=== PATIENT | female | born 1980 | race Caucasian/White ===

== ENCOUNTER 2020-08-08 17:53 | Inpatient (IN) | payer OTHER, SELFPAY ==
--- NOTE | 2020-08-08 17:53 | LDADM ---
This patient, Jadne Soto, was admitted to Labor/Delivery/Recovery 107 on 08/08/20 at 17:53. Plans for labor, pain management and were discussed with patient. Patient/family oriented to hospital policies and general routines including ID bracelet, bed and alarms, visiting hours, pain management, procedures, bathroom and other care routines, personal items, smoking policy, room service/diet and guest tray routines, infant security routines, and visiting hours. Patient/Family are encouraged to report perceived risks to care and to ask questions if they do not understand what they are told or what they should do. See OBIX for further documentation.
--- NOTE | 2020-08-08 18:32 | WPDANESEPP ---
Anes - Eval Pre Procedure Date/Time: 08/08/20 18:32 Pre Op Diagnosis: induction of labor Patient Data Age: 39 Gender: F Height: Weight: Allergies Allergy/AdvReac Type Severity Reaction Status Date / Time acetaminophen Allergy Mild ITCHING Verified 07/21/20 13:39 hydrocodone Allergy Mild ITCHING Verified 07/21/20 13:39 Home Medications Medication Instructions Recorded Confirmed Type PNV cmb#95-ferrous fumarate-FA 1 tablet PO DAILY 07/21/20 07/21/20 History [] Patient hx anesthesia problems: none Family hx anesthesia problems: none PMFSH Past Medical History Medical History Hx of supraventricular tachycardia Family History Family History Mother Breast cancer Father Pre-diabetes Chronic obstructive pulmonary disease Sibling Adrienne's disease Social History Social History Substance use: never Spiritual care concerns: No Exam Day of Procedure 08/08/20 18:32 Patient weight: normal Neurological: alert and oriented
[2020-08-08 18:57] VITALS: BP 121/74; PULSE 79
[2020-08-08 19:00] VITALS: BP 117/80; PULSE 91; TEMP 36.9
[2020-08-08 19:02] LABS: Basophils Percent Auto 0.2 % (0.2-1.2); Eosinophils Percent Auto 0.4 % (0-4.4); Hematocrit 34.7 % (37.0-47.0); Hemoglobin 11.9 g/dL (12.0-15.0); Immature Granulocyte Absolute 0.06 K/mm3 (0.00-0.031); Immature Granulocyte Percent A 0.6 % (0-0.5); Lymphocytes Absolute Auto 2.18 K/mm3 (0.9-3.2); Lymphocytes Percent Auto 23.6 % (18.3-44.2); Mean Corpuscular HGB Conc 34.3 g/dl (32-36); Mean Corpuscular Hemoglobin 31.6 pg (26-34); Mean Platelet Volume 10.2 fl (7.4-10.4); Monocytes Absolute Auto 0.8 K/mm3 (0.1-0.6); Monocytes Percent Auto 8.4 % (2.6-8.5); Neutrophils Absolute Auto 6.2 K/mm3 (1.3-6.7); Neutrophils Percent Auto 66.8 % (45.5-73.1); Platelet Count Result 218 k/mm3 (150-375); Red Blood Count 3.77 M/mm3 (4.2-5.4); Red Cell Distribution Width 12.9 % (11.5-14.5); White Blood Count 9.3 K/mm3 (4.5-10.0)
[2020-08-08] MEDS: DINOPROSTONE 10 MG VAG INSERT VAGINAL (19:05)
[2020-08-08 19:15] VITALS: BP 112/70; PULSE 82
[2020-08-08] MEDS: ACETAMINOPHEN 325 MG TABLET 650 MG PO (19:21)
[2020-08-08 21:09] VITALS: BP 119/70; PULSE 67; RESP 18; TEMP 36.6
[2020-08-09] VITALS (136 sets, daily range): BP systolic 93–131; BP diastolic 51–90; PULSE 61–101; RESP 18–20; TEMP 36.1–36.9; O2SAT 95–100
[2020-08-09] MEDS: ACETAMINOPHEN 325 MG TABLET 650 MG PO (01:19)
[2020-08-09] MEDS: LACTATED RINGERS 1,000 ML 125 ML IV CONT ×5 (05:28→23:52)
[2020-08-09] MEDS: OXYTOCIN 30 UNITS/NS 500 ML 30 UNITS/500 ML BAG IV CONT (05:29)
--- NOTE | 2020-08-09 06:59 | P.PNAN_ITS ---
Anes - Eval Pre Procedure Procedure: labor epidural Date/Time: 08/09/20 06:59 Preop Diagnosis: labor pain Pre Op Diagnosis: induction of labor Patient Data Age: 39 Gender: F Height: 5 ft 10 in Weight: 95 kg Last Vital Signs Temp 36.8 C 08/09/20 05:27 Pulse 75 08/09/20 06:45 Resp 20 08/09/20 05:27 BP 109/55 L 08/09/20 06:45 Allergies Allergy/AdvReac Type Severity Reaction Status Date / Time hydrocodone Allergy Mild ITCHING Verified 07/21/20 13:39 Home Medications Medication Instructions Recorded Confirmed Type PNV cmb#95-ferrous fumarate-FA 1 tablet PO DAILY 07/21/20 07/21/20 History [] Laboratory Tests 08/08/20 08/08/20 08/08/20 18:54 18:54 18:54 WBC 9.3 K/mm3 K/mm3 (4.5-10.0) RBC 3.77 M/mm3 L M/mm3 (4.2-5.4) Hgb 11.9 g/dL L g/dL (12.0-15.0) Hct 34.7 % L % (37.0-47.0) MCV 92.0 fl fl (80-100) MCH 31.6 pg pg (26-34) MCHC 34.3 g/dl g/dl (32-36) RDW 12.9 % % (11.5-14.5) Plt Count 218 k/mm3 k/mm3 (150-375) MPV 10.2 fl fl (7.4-10.4) Immature Gran % (Auto) 0.6 % H % (0-0.5) Neut % (Auto) 66.8 % % (45.5-73.1) Lymph % (Auto) 23.6 % % (18.3-44.2) [facility] % (Auto) 8.4 % % (2.6-8.5) Eos % (Auto) 0.4 % % (0-4.4) Baso % (Auto) 0.2 % % (0.2-1.2) Lymph # (Auto) 2.18 K/mm3 K/mm3 (0.9-3.2) [facility] # (Auto) 0.8 K/mm3 H K/mm3 (0.1-0.6) Eos # (Auto) 0.0 K/mm3 K/mm3 (0-0.3) Baso # (Auto) 0.0 K/mm3 K/mm3 (0.0-0.1) Abs Immat Gran (auto) 0.06 K/mm3 H K/mm3 (0.00-0.031) Absolute Neuts (auto) 6.2 K/mm3 K/mm3 (1.3-6.7) Absolute Nucleated RBC 0.0 K/mm3 K/mm3 (0.0-0.012) Nucleated RBC % 0.0 % % (0.0-0.2) RPR Pending Blood Type O Positive Antibody Screen Negative Patient hx anesthesia problems: none Family hx anesthesia problems: none PMFSH Past Medical History Medical History Hx of supraventricular tachycardia Family History Family History Mother Breast cancer Father Pre-diabetes Chronic obstructive pulmonary disease Sibling Adrienne's disease Social History Social History Smoking status: Never smoker Substance use: never Spiritual care concerns: No Exam Day of Procedure 08/09/20 06:59
--- NOTE | 2020-08-09 08:30 | WPDOBADMIT ---
Obstetrics - Admit Note Admission Note: record reviewed. Additions to the history and/or subsequent changes in the physical findings follow. 39 y/o at 39 3/7 weeks here for induction of labor. GBS neg. Cervidil overnight, has been withdrawn. otherwise uncomplicated. EFW two weeks ago was 7#5oz. AVSS NST reactive TOCO: irregular contractions ABD soft, nontender, gravid, vertex EXT nontender Cervix 2/50/-2. AROM with clear fluid. Bedside ultrasound shows vertex presentation. A: IUP at 39 3/7 weeks here for induction of labor. P: Oxytocin. Anticipate ..
[2020-08-09 10:52] LABS: Rapid Plasma Reagin Non-Reactive (NonReactive)
--- NOTE | 2020-08-09 12:45 | PM.OBPNLAB ---
Pain Control Date/time seen: 08/09/20 5185 Comments: Feeling some contractions. They are tolerable. Pelvic Exam Dilation (cm): 3 Effacement (%): 50 station: -2 Status status: Category l Assessment and Plan Comments: Continue labor.
--- NOTE | 2020-08-09 15:20 | PM.OBPNLAB ---
Pain Control Date/time seen: 08/09/20 17:42 Comments: Still comfortable. Pelvic Exam Dilation (cm): 4 Effacement (%): 50 station: -2 Status status: Category l Assessment and Plan Comments: Continue labor.
[2020-08-10] VITALS (63 sets, daily range): BP systolic 97–136; BP diastolic 51–96; PULSE 65–205; RESP 16–22; TEMP 36.4–37.4; O2SAT 95–100
[2020-08-10] MEDS: AMPICILLIN 2 GM/NS 100 ML 2 GM/100 ML BAG IVPB (02:52)
[2020-08-10] MEDS: ONDANSETRON INJ 4 MG/2 ML VIAL IV PUSH (04:11)
--- NOTE | 2020-08-10 06:28 | P.PCNOB_ITS ---
OB - Delivery Note Procedure Delivery date: 08/10/20 Procedure: Induction of labor with Induction method: AROM and other (Cervidil) Delivery augmentation: pitocin Delivery monitor: external FHT, external uterine and internal uterine Route of delivery: Laceration description: Perineal - 2nd Degree Delivery repair: vicryl (3-0) Specimen: Yes (cord blood) Estimated blood loss (mL): 320 Anesthesia type: Epidural Disposition: PACU Complications: None Narrative: 39 y/o at 39 4/7 weeks gestation who presented to the hospital for induction of labor. Cervidil was placed overnight, then withdrawn the next morning. Oxytocin was administered intravenously. Amniotomy was performed with return of clear fluid. She received an epidural for pain control. Eighteen hours after AROM, she received ampicillin intravenously. Her labor progressed and her cervix dilated completely. She pushed with good effort and delivered the infant's head to the perineum, followed by the body. The nose and mouth were bulb suctioned. After a delay, the cord was clamped and cut. The infant was handed off the field. Cord blood was collected. The placenta delivered spontaneously and was grossly normal in appearance. The usual 3 vessel cord was noted. A second degree midline perineal laceration was sustained. This was reapproximated using 3 0 Vicryl in the usual layered fashion. Excellent hemostasis resulted as did excellent reapproximation of the normal anatomy. Needle and instrument counts were correct. The patient was taken to recovery room in stable condition. The infant went to the nursery in stable condition. I was present and scrubbed for the entire delivery. [place] Baby Date of : 08/10/20 Time of : 06:10 Weeks of gestation at delivery: 39 gender: Female Weight (pounds): 8 Weight (ounces): 0 presentation: vertex position: Left Occiput Anterior Placenta delivery description: Spontaneous and Normal Configuration cord vessel description: 3 Vessels and Nuchal Cord score one minute: 8 score five minutes: 9
--- NOTE | 2020-08-10 06:31 | PM.OBDSVD ---
DS: Admitting Diagnosis Admitting Diagnosis Admitting Diagnosis: induction of labor DS: Discharge Diagnosis Discharge Diagnosis (1) (normal spontaneous vaginal delivery): Code(s): O80 - Encounter for full-term uncomplicated delivery Status: Acute OB - DS: Summary OB Procedures : None OB Procedures Intrapartum: Spontaneous Vag Delivery OB Procedures: : None DS: Data Data Completed and Pending Labs on day of discharge: Labs from last 24 hours 08/08/20 18:54 RPR Non-reactive Discharge Plan Discharge Attending physician on discharge: Evelio Weston Consulting providers: Lon Sandy Discharging Clinician: Evelio Weston Patient Disposition: Home, Self-Care Activity: may shower, no straining, may drive after 2 weeks and pelvic rest Diet: regular Wound Care Instructions: follow printed instructions Discharge Instructions: Education: Mom and Baby Guide Given to: Patient Follow-Up: Call your delivering provider's office for an appointment to be seen in: 6 weeks Mom and baby should come to the [facility] for the follow-up appointment. Appointment Date/Time: Friday08/14/2020 at 8:00 am Call [phone] if you are unable to keep your appointment time. BREAST CARE: * Wear a snug supportive bra. * For engorgement discomfort: Breast Feeding: * Apply warm moist washcloths * Express milk as needed to relieve engorgement * Wear loose clothing * For sore nipples: * Identify correct latch-on * Apply warm moist washcloths before and after nursing * Air dry nipples after nursing * May apply Lansinoh cream to nipples EPISIOTOMY/PERINEAL CARE: * Until bleeding stops, use your osorio bottle after urinating * Change your pad frequently throughout the day * You may take sitz baths several times a day (fill your bathtub with warm water and soak for 20 minutes.) Do NOT bathe in the water * No tub baths until seen by your physician - You may shower ACTIVITY: * Rest as much as possible. * Do not exercise or lift anything heavier than your baby (such as laundry or other children.) * Avoid stairs or driving as much as possible. * Do not put anything into the vagina. No douching, tampons, or sexual activity until seen by physician. NOTIFY PHYSICIAN IF YOU HAVE ANY QUESTIONS OR IF ANY OF THE FOLLOWING SYMPTOMS OCCUR: * If your episiotomy or incision becomes red, swollen, or more painful than what you have experienced in the hospital. * If your vaginal bleeding becomes foul smelling. * If your vaginal bleeding becomes more heavy than a period or if your bleeding changes from pink to bright red. However, you may pass an occasional walnut-sized clot once or twice for the first week . * If you experience a sharp, shooting pain in you calves. * If you discover a hard, reddened area on your breast or if you experience flu-like symptoms. DIET: * Eat regular, well-balanced meals. * Drink plenty of fluids daily. If , drink to thirst. Per Dr. Jayy Nunez Call or return if temperature above 100.4? F, increased abdominal pain, increased vaginal bleeding or any new problems. Follow-up/Referrals: Evelio Weston MD [Physician] - (6 weeks) Discharge Medications: New ibuprofen 600 mg tablet 600 mg PO Q6H PRN (Reason: cramps) Qty: 30 RF: 0 Continued PNV cmb#95-ferrous fumarate-FA [] 28 mg iron- 800 mcg Tablet 1 tablet PO DAILY RF: 0 Date of admission: 08/08/20 17:53 Primary Care Provider: PHYSICIAN,ENERGY AND SUSTAINABILITY MANAGER Admitting Provider: Evelio Weston Discharge Date/Time: 08/12/20 11:51 Attending physician on admission: Obed Steven
[2020-08-10] MEDS: OXYTOCIN 30 UNITS/NS 500 ML 30 UNITS/500 ML BAG 125 UNITS IV CONT (06:45)
[2020-08-10] MEDS: IBUPROFEN 600 MG TABLET PO ×3 (07:17→19:36)
[2020-08-10] MEDS: WITCH HAZEL 40 PADS 1 PAD TOPICAL (07:18)
[2020-08-10] MEDS: BENZOCAINE 20% AER SPR (*SP) 56 GM CAN 1 SPRAY TOPICAL (07:18)
--- NOTE | 2020-08-10 08:57 | OBPPTRN ---
Patient transferred to post room # 292 via wheelchair. Support person present. Oriented to unit, room, information board, rooming in, admission packet and security measures. Patient verbalizes understanding.
[2020-08-10] MEDS: MULTIVIT/MIN/PREN/FOL AC/IRON TABLET 1 TAB PO (11:39)
[2020-08-10] MEDS: ACETAMINOPHEN 325 MG TABLET 650 MG PO ×3 (11:39→23:48)
--- NOTE | 2020-08-10 11:45 | PC.NURSE ---
Called Anesthesia to come evaluate pt for ZAPATA. Reported that ZAPATA is worse when she sits up, better when she lies down. Pain is unaffected by Motrin.
--- NOTE | 2020-08-10 13:34 | PC.NURSE ---
Anesthesia here to evaluate pt for c/o head and neck ache.
[2020-08-11] MEDS: IBUPROFEN 600 MG TABLET PO ×3 (04:20→19:34)
[2020-08-11] MEDS: WITCH HAZEL 40 PADS 1 PAD TOPICAL (04:21)
[2020-08-11 05:01] LABS: Hematocrit 27.9 % (37.0-47.0); Hemoglobin 9.8 g/dL (12.0-15.0)
--- NOTE | 2020-08-11 07:03 | PM.OBPNVD ---
OB - PN: Subj Subjective Date/time seen: 08/11/20 07:03 Patient comments: no complaints and pain well controlled baby status: doing well and nursing well OB - PN: Obj Data Labs CBC & Chem 7: 08/11/20 04:20 Labs: Laboratory Results - last 24 hr 08/11/20 04:20 Hgb 9.8 L Hct 27.9 L OB - PN A/P Plan day: 1 Plan: routine care, discharge home and follow up 6 weeks Time Spent With Patient Time: Total time spent is greater than 50% in coordination of care (as documented) at patient's floor/unit and/or counseling patient: Time with patient: less than 15 minutes Review of Systems Review of Systems: All systems reviewed & are unremarkable except as noted in HPI and below Exam Const: General: no acute distress Eyes: General: appearance normal, both eyes and all related structures Neck: Neck: supple and no JVD Thyroid: thyroid normal Resp: Effort & Inspection: normal respiratory effort Auscultation: clear to auscultation bilaterally Cardio: Rate: regular rate Rhythm: regular rhythm GI: Inspection: non-distended GI Palp: Yes Soft to palpation, No Tenderness to palpation present (GI) and No Guarding due to palpation present (GI) Auscultation: normal bowel sounds : General: Yes bladder normal to palpation External Female Exam: normal external appearance Speculum Exam - Vagina: normal vaginal discharge and No vaginal bleeding Speculum Exam - Cervix: nontender Bimanual exam- vagina & uterus: bladder normal to palpation and No Cervical tenderness present OB/external & speculum: No vaginal bleeding Skin: General skin exam: no rashes or lesions noted Extrem: General: normal to inspection and no edema Psych: Mental Status: mental status grossly normal Affect: normal affect
--- NOTE | 2020-08-11 07:43 | WPDANLDPN2 ---
Anes-Prog Note L&D Date/Time: 08/11/20 07:43 Comfortable throughout: labor and delivery Neuraxial method: epidural Epidural/Spinal procedure site: clean & non-tender Neuro status: Neuro function grossly intact. Cardiovascular status: normal Respiratory status: normal Airway patency: baseline Mental status: baseline Post-Op hydration status: normal Vital Signs: Last Vital Signs Temp 36.7 C 08/10/20 19:47 Pulse 66 08/10/20 19:47 Resp 16 08/10/20 19:47 BP 111/62 08/10/20 19:47 Pulse Ox 98 08/10/20 19:47 Pain score (VAS): 2/10 Post-procedural complaints: other (pt with c/o headache (posterior neck/shoulders), worse with standing, relieved with lying flat. Better this morning. ) Patient feedback: Patient satisfied with anesthetic care. Pt instructed to contact anesthesia department if headache worsens. Other findings: Pt instructed on conservative measures for PDPH vs Epidural Blood patch
[2020-08-11 09:00] VITALS: BP 104/55; PULSE 71; RESP 18; TEMP 37; O2SAT 99
[2020-08-11] MEDS: MULTIVIT/MIN/PREN/FOL AC/IRON TABLET 1 TAB PO (09:00)
[2020-08-11] MEDS: DOCUSATE SODIUM 100 MG CAPSULE PO ×2 (09:00→17:13)
[2020-08-11] MEDS: POLYSACCHARIDE IRON COMPLEX 150 MG CAPSULE PO ×2 (09:01→17:13)
[2020-08-11] MEDS: ACETAMINOPHEN 325 MG TABLET 650 MG PO (09:02)
--- NOTE | 2020-08-11 14:06 | P.PCNANE_ITS ---
Anes - Epidural Blood Patch PN Date/Time: 08/11/20 14:06 Consent: I have discussed with the patient/family/POA, the rationale of a lumbar epidural autologous blood patch for the treatment of post-dural puncture headache (spinal headache), including associated potential risks, benefits, comp lications and side effects. I have also discussed more conservative treatment options such as intravenous hydration, caffeine and non-prescription analgesics. The patient/family/POA, understand(s) and wish(es) to proceed with epidural autologous blood patch as treatment for the patient's post-dural puncture headache. Time-Out: A pre-procedural Time-Out was completed immediately before starting the procedure and confirmed: Patient Identification, Site, Procedure, Patient Position and the Availability of Requisite Equipment. Clinical Indications: post dural puncture headache Epidural Insertion Note Patient position: sitting Skin prep: chlorhexidine and sterile drape Needle: 18 gauge Tuohy-Schliff Technique: loss of resistance Skin anesthesia: lidocaine 1% Observations: tolerated well and other (prepped draped sterile. Epid space acccessed without difficulty. 20 cc blood drawn from left forearm and instilled in epid space slowly to 20 cc. no comp. pt supine head up 30 deg. headache gone.) Complications: none
--- NOTE | 2020-08-11 18:35 | PC.NURSE ---
1600 Pt had a blood patch done this afternoon by Dr. Sandy; she now states she has no more pain in her neck, shoulders and head; she is up ad olegario without problems.
[2020-08-11 19:42] VITALS: BP 126/78; PULSE 63; RESP 16; TEMP 36.6; O2SAT 99
--- NOTE | 2020-08-12 06:34 | PM.OBPNVD ---
OB - PN: Subj Subjective Date/time seen: 08/12/20 06:34 Patient comments: no complaints and pain well controlled baby status: doing well and nursing well OB - PN: Obj Data Labs CBC & Chem 7: 08/11/20 04:20 OB - PN A/P Plan day: 2 Plan: routine care, discharge home and follow up 6 weeks Time Spent With Patient Time: Total time spent is greater than 50% in coordination of care (as documented) at patient's floor/unit and/or counseling patient: Time with patient: less than 15 minutes Review of Systems Review of Systems: All systems reviewed & are unremarkable except as noted in HPI and below Exam Const: General: no acute distress Eyes: General: appearance normal, both eyes and all related structures Neck: Neck: supple and no JVD Thyroid: thyroid normal Resp: Effort & Inspection: normal respiratory effort Auscultation: clear to auscultation bilaterally Cardio: Rate: regular rate Rhythm: regular rhythm GI: Inspection: non-distended GI Palp: Yes Soft to palpation, No Tenderness to palpation present (GI) and No Guarding due to palpation present (GI) Auscultation: normal bowel sounds : General: Yes bladder normal to palpation External Female Exam: normal external appearance Speculum Exam - Vagina: normal vaginal discharge and No vaginal bleeding Speculum Exam - Cervix: nontender Bimanual exam- vagina & uterus: bladder normal to palpation and No Cervical tenderness present OB/external & speculum: No vaginal bleeding Skin: General skin exam: no rashes or lesions noted Extrem: General: normal to inspection and no edema Psych: Mental Status: mental status grossly normal Affect: normal affect
[2020-08-12 07:01] VITALS: BP 114/76; PULSE 61; RESP 16; TEMP 36.4; O2SAT 100
[2020-08-12] MEDS: MULTIVIT/MIN/PREN/FOL AC/IRON TABLET 1 TAB PO (07:01)
[2020-08-12] MEDS: POLYSACCHARIDE IRON COMPLEX 150 MG CAPSULE PO (07:01)
[2020-08-12] MEDS: DOCUSATE SODIUM 100 MG CAPSULE PO (07:01)
[2020-08-12] MEDS: IBUPROFEN 600 MG TABLET PO (07:01)
[2020-08-14 07:50] VITALS: BP 129/84; PULSE 72; RESP 16; TEMP 36.9; O2SAT 99
== END 2020-08-12 11:51 | disposition home or self-care (01) | DRG 807 ==
LOC: ANHLDR 08-10 06:31 → ANHOB2 08-12 10:14 → ANHLDR 08-15 08:33 → ANHOB2 08-15 08:33
PROVIDERS: Admitting Provider Obstetrics & Gynecology; Visit Provider Obstetrics & Gynecology
DX: O69.81X0 Labor and delivery complicated by cord around neck, without compression, not applicable or unspecified (principal); Z37.0 Single live birth; Z3A.39 39 weeks gestation of pregnancy; O70.1 Second degree perineal laceration during delivery; O89.4 Spinal and epidural anesthesia-induced headache during the puerperium; Z28.21 Immunization not carried out because of patient refusal
CPT/HCPCS: 36415; 85014; 85018; 85025; 86592; 86850; 86900; 86901; 90471; 90653; 90686; A9270; G0008; J0290; J2405; J2590; J2795; J7120

== ENCOUNTER 2023-03-26 08:52 | Outpatient (CLI) | payer OTHER, SELFPAY ==
--- NOTE | ~2023-03-26 | MM_ITS ---
EXAMINATION: MM screening jose raul BI w sam HISTORY: Screening mammogram, family history of breast cancer in her mother. TECHNIQUE: Craniocaudal and mediolateral oblique 3-D tomosynthesis images were obtained and synthetic 2-D images were generated. CAD analysis was submitted and interpreted. COMPARISON: No prior mammogram is available for comparison at this institution. BREAST PARENCHYMAL COMPOSITION:The breasts are heterogeneously dense, which may obscure small masses. FINDINGS: No suspicious mass, calcification, or architectural distortion are identified in either lj ast to suggest malignancy. There has been no suspicious interval change. IMPRESSION: No mammographic evidence of malignancy. Recommend routine screening mammography in one year. BI-RADS Category 1: Negative Reviewed, dictated and finalized at location .
== END 2023-03-26 08:53 | disposition home or self-care (01) ==
LOC: ANHIMG 08:56
PROVIDERS: PCP Family Medicine; Visit Provider Family Medicine
DX: Z12.31 Encounter for screening mammogram for malignant neoplasm of breast (principal)
CPT/HCPCS: 77063; 77067

== ENCOUNTER → 2023-12-19 14:48 | Outpatient (CLI) | payer OTHER, SELFPAY ==
--- NOTE | ~2023-12-19 | US_ITS ---
EXAMINATION: US pelvic complete w TV DATE: 12/19/2023 15:24 INDICATION: Amenorrhea, unspecified. TECHNIQUE: Multiple transabdominal and transvaginal sonographic images of the pelvis were obtained. COMPARISON: None. FINDINGS: TRANSABDOMINAL ULTRASOUND: The uterus measures 9.0 x 3.8 x 4.9 cm. There is no free fluid in the pelvis. TRANSVAGINAL ULTRASOUND: The endometrial complex measures 2 mm in thickness. The right ovary measures 3.8 x 1.2 x 2.9 cm. The left ovary measures 2.0 x 1.7 x 2.0 cm. There is normal vascular flow in the ovaries. IMPRESSION: 1. Normal pelvis. Reviewed, dictated and finalized at location E. ET INSPECTOR FINISHED IMPRESSION: 1. Normal pelvis.
== END ==
PROVIDERS: PCP Family Medicine; Visit Provider Family Medicine
DX: N91.2 Amenorrhea, unspecified (principal)
CPT/HCPCS: 76830; 76856

== ENCOUNTER 2025-03-15 08:40 | Emergency (ER) | payer OTHER, SELFPAY ==
--- NOTE | 2025-03-15 08:43 | ED_ITS ---
HPI - URI/Sore Throat General Chief Complaint: Upper Respiratory Infection Stated Complaint: sore throat Time Seen by Provider: 03/15/25 08:42 Source: patient Mode of arrival: ambulatory Limitations: no limitations History of Present Illness HPI Narrative: Patient presents with 3 days of sore throat, chills, headache, and lethargy. Reports congestion and body aches. Reports chills. Reports no sick contacts. Has been alternating Tylenol and ibuprofen for symptoms. She reports taking a negative COVID home test yesterday. Patient denies any cough, SOB, or trouble breathing. Denies chest pain. Denies any nausea, vomiting, or diarrhea. Related Data Allergies Allergy/AdvReac Type Severity Reaction Status Date / Time hydrocodone Allergy Mild ITCHING Verified 03/15/25 08:44 Review of Systems Review of Systems: CONSTITUTIONAL: Denies fever, or sweats. endorses chills. EYES: Denies visual changes, redness, or discharge. ENT: Denies rhinorrhea or otalgia. reports congestion and sore throat. CARDIOVASCULAR: Denies chest pain, palpitations, or edema. RESPIRATORY: Denies cough or dyspnea. GASTROINTESTINAL: Denies abdominal pain, nausea, vomiting, or diarrhea. GENITOURINARY: Denies dysuria or hematuria. SKIN: Denies rash or itching. MUSCULOSKELETAL: Denies back pain, joint pain. Reports body aches. NEUROLOGIC: Denies headache, numbness, or weakness. All other systems reviewed are negative, except as documented in HPI. [facility] Past Medical History Medical History (Updated 03/15/25 @ 09:03 by Lauren Nowak APRN) Hx of supraventricular tachycardia Family History Family History Mother Breast cancer Father Pre-diabetes Chronic obstructive pulmonary disease Sibling Adrienne's disease Social History Social History Smoking status: Never smoker Substance use: never Spiritual care concerns: No Comments At time of signature, I have reviewed and agree with nursing past medical, surgical, social and family history unless otherwise noted. Please see nursing chart for further information. There is no relevant family history pertinent to the presenting complaint. Exam Narrative: GENERAL: This is a well-nourished, well-developed patient, in no apparent distress. HEAD: normocephalic, atraumatic. EYES: Sclera clear/white. EARS: External ears normal, auditory canals clear and without drainage, TMs with slight erythema without perforation. Hearing grossly intact. NOSE: External nose normal with no obvious nasal discharge, nares with redness and rhinorrhea. THROAT: Mucous membranes moist, posterior pharynx erythematous with exudate. Tonsils 3+. NECK: Neck supple, tender to touch with submandibular lymphadenopathy. CARDIOVASCULAR: Regular rate and rhythm without murmurs, gallops, or rubs. RESPIRATORY: Clear to auscultation. Breath sounds equal bilaterally. No wheezes, rales, or rhonchi. SKIN: warm, Dry, intact with no suspicious lesions or rash, good texture and turgor. NEURO: awake, alert, and oriented to person, place and time. EXTREMITIES: No joint tenderness, effusion, or edema noted. Course Course Level of Care: Express Care Visit MDM - URI/Sore Throat MDM Narrative Medical decision making narrative: Strep test was positive today. Patient is aware of diagnosis, understands and agrees to treatment plan. Anticipatory guidance was given. Patient agrees to follow-up as directed and is aware of reasons to seek care at the emergency department. Discharge instructions Were reviewed with the patient, as well as provided in writing per nursing staff. All questions have been answered, and the patient denies any further questions related to discharge or discharge plan. Lab Data Labs: Rapid strep test positive Discharge Plan Discharge Clinical Impression: Strep pharyngitis Patient Disposition: Home Condition: Stable Instructions: Antibiotic Form, Strep Throat (ED) Additional Instructions: Take medications as prescribed and follow printed instructions. May take over the counter acetaminophen and/or ibuprofen by mouth as needed/directed for pain/fever.? May use over the counter throat sprays and lozenges to help with throat pain.? Warm salt water gargles.? Push fluids and soft diet; advance as tolerated.? No juices or sodas as this will increase pain.? Do not share eating or drinking utensils.? Change toothbrush after 3 days.?? Nutrition is important - eat small frequent meals. Call your Primary Care Doctor today to make a follow-up appointment. Go to the ER for any worsening symptoms or concerns Patient Language: [place] Prescriptions: New amoxicillin 500 mg capsule 500 mg PO Q12H 10 Days Qty: 20 0RF Follow-up/Referrals: Barron,Odessa Donohue NP [Primary Care Provider] - Stand Alone Forms: Work/School Release IP Time of Disposition: 09:05
[2025-03-15 08:50] VITALS: BP 112/66; PULSE 63; RESP 18; TEMP 36.5; O2SAT 100
[2025-03-15 08:55] LABS: EDSTREPNEGPOS1 Positive (Negative)
== END 2025-03-15 09:06 | disposition home or self-care (01) ==
PROVIDERS: Emergency Provider Nurse Practitioner; PCP Nurse Practitioner Family
DX: J02.0 Streptococcal pharyngitis (principal)
CPT/HCPCS: 87880; 99213; G0463

== ENCOUNTER 2025-04-09 17:35 | Emergency (ER) | payer OTHER, SELFPAY ==
--- NOTE | 2025-04-09 18:15 | ED.GENADULT ---
HPI - General Adult General Chief complaint: Upper Respiratory Infection Stated complaint: ?strep daughter has it Time Seen by Provider: 04/09/25 18:15 Source: patient Mode of arrival: ambulatory Limitations: no limitations History of Present Illness HPI narrative: 44-year-old female patient presents to the [facility] with complaints of sore throat. Patient states that her daughter has strep throat was diagnosed on . Patient states she just wanted to come and get checked out denies any fevers body aches or chills. Related Data Home Medications Medication Instructions Recorded Confirmed Last Taken Type progesterone micronized 200 mg mg 04/09/25 Unknown History capsule Allergies Allergy/AdvReac Type Severity Reaction Status Date / Time hydrocodone AdvReac Mild ITCHING Verified 04/09/25 18:20 Review of Systems Review of Systems: CONSTITUTIONAL: Denies fever, chills, or sweats. EYES: Denies visual changes, redness, or discharge. ENT: Denies rhinorrhea, congestion, Positive mild sore throat, denies otalgia. CARDIOVASCULAR: Denies chest pain, palpitations, or edema. RESPIRATORY: Denies cough or dyspnea. GASTROINTESTINAL: Denies abdominal pain, nausea, vomiting, or diarrhea. GENITOURINARY: Denies dysuria or hematuria. SKIN: Denies rash or itching. MUSCULOSKELETAL: Denies back pain, joint pain, or myalgia. NEUROLOGIC: Denies headache, numbness, or weakness. PSYCHIATRIC: Denies anxiety or depression. PMFSH Past Medical History Medical History Hx of supraventricular tachycardia Family History Family History Mother Breast cancer Father Pre-diabetes Chronic obstructive pulmonary disease Sibling Adrienne's disease Social History Social History Smoking status: Never smoker Substance use: never Spiritual care concerns: No Comments At the time of my signature I agree with nursing past medical history, surgical, social, and family history. There is no relevant family history pertinent to the presenting complaint. Exam Narrative: GENERAL: Well-appearing, well-nourished, and in no acute distress. HEAD: Normocephalic, atraumatic. EYES: PERRLA and EOMI. ENT: Nares clear, no rhinorrhea or epistaxis. Mucous membranes moist. posterior pharynx with no erythema, tonsillar enlargement, exudates or lesions present. Bilateral TMs are clear no erythema or foreign bodies the canal. NECK: Supple. No lymphadenopathy CHEST: Clear to auscultation. No respiratory distress. HEART: Regular rate and rhythm. No murmur heard. Normal peripheral pulses. ABDOMEN: Soft, nontender, nondistended, normal active bowel sounds. EXTREMITIES: Normal range of motion. No edema. SKIN: Warm, dry, no rash. NEURO: No focal deficits. Alert and oriented x3. Course Course Level of Care: Express Care Visit Vital Signs Vital signs: Vital Signs Temperature 36.8 C 04/09/25 18:28 Pulse Rate 48 L 04/09/25 18:28 Respiratory Rate 16 04/09/25 18:28 Blood Pressure 107/61 04/09/25 18:28 Pulse Oximetry 100 04/09/25 18:28 Oxygen Delivery Room Air 04/09/25 18:28 Temperature 36.8 C 04/09/25 18:28 Pulse Rate 48 L 04/09/25 18:28 Respiratory Rate 16 04/09/25 18:28 Blood Pressure 107/61 04/09/25 18:28 Pulse Oximetry 100 04/09/25 18:28 Oxygen Delivery Room Air 04/09/25 18:28 Vital signs reviewed. Medical Decision Making MDM Narrative Medical decision making narrative: Notified patient her point of care test is negative. We will send it off to the lab for a culture if the culture comes back positive we will call her antibiotics at that time. Patient verbalized understanding denies any other questions or concerns at this time. Differential Diagnosis Differential Diagnosis: Differential diagnosis: Viral pharyngitis, pharyngitis, group A strep, infectious mononucleosis, gonococcal pharyngitis, exudative pharyngitis, oral candidiasis. Chronic allergies, postnasal drip, GERD, abscess formation, but glottitis, retropharyngeal abscess formation, or airway obstruction. Vital Signs Vital Signs: Vital Signs Temperature 36.8 C 04/09/25 18:28 Pulse Rate 48 L 04/09/25 18:28 Respiratory Rate 16 04/09/25 18:28 Blood Pressure 107/61 04/09/25 18:28 Pulse Oximetry 100 04/09/25 18:28 Oxygen Delivery Room Air 04/09/25 18:28 Temperature 36.8 C 04/09/25 18:28 Pulse Rate 48 L 04/09/25 18:28 Respiratory Rate 16 04/09/25 18:28 Blood Pressure 107/61 04/09/25 18:28 Pulse Oximetry 100 04/09/25 18:28 Oxygen Delivery Room Air 04/09/25 18:28 Lab Data Labs: Lab Results 04/09/25 Range/Units 18:32 POC Grp A Strep Screen Negative (Negative) Critical Care Time Critical Care Time Critical Care Time: No Discharge Plan Discharge Clinical Impression: Pharyngitis Qualifiers: Pharyngitis/tonsillitis etiology: unspecified etiology Qualified Code(s): J02.9 - Acute pharyngitis, unspecified Patient Disposition: Home Condition: Stable Instructions: Antibiotic Form, Pharyngitis (ED) Additional Instructions: A sore throat can be caused by an infection from a virus or bacteria. Sore throat can also be caused by postnasal drip, allergies, and exposure to smoke. A viral sore throat last 3-4 days and cannot be treated with antibiotics. One type of sore throat virus, infectious mononucleosis ( mono ), can last for 3 weeks and older children. The germs that cause these infections are contagious and can be spread by coughing or sharing drinks or utensils. Contact her primary care physician or go to the ER if: Your trouble breathing or swallowing because her throat is swollen or sore. You're drooling because it hurts too much to swallow. You're painful lump in your throat go away after 5 days. You're fever is higher than 10 2Â°F or last longer than 3 days. You have confusion. You are blood in your throat. You're sore throat should feel better within 3-5 days without treatment if it is caused by virus. You may need the following: Ibuprofen or Tylenol as needed for pain or fever Gargle warm salt water Drink more liquids, cold or warm drinks may help soothe her throat. Humidifier in your room. Cough drops, ice, soft foods, or popsicles may help soothe her throat. A spoonful of honey could help with inflammation and soothe her throat. Wash her hands with soap and water, do not share food or drinks, throat away her toothbrush after 72 hours. Patient Language: Montenegrin Prescriptions: No Action progesterone micronized 200 mg capsule Follow-up/Referrals: UNKNOWN,DOCTOR [Primary Care Provider] - Time of Disposition: 18:42
[2025-04-09 18:28] VITALS: BP 107/61; PULSE 48; RESP 16; TEMP 36.8; O2SAT 100
[2025-04-09 18:33] LABS: EDSTREPNEGPOS1 Negative (Negative)
== END 2025-04-09 18:43 | disposition home or self-care (01) ==
PROVIDERS: Emergency Provider Nurse Practitioner Family
DX: J02.9 Acute pharyngitis, unspecified (principal)
CPT/HCPCS: 87081; 87880; 99213; G0463

== ENCOUNTER 2025-08-19 08:48 | Outpatient (CLI) | payer OTHER, SELFPAY ==
--- NOTE | ~2025-08-19 | MM_ITS ---
EXAMINATION: MM screening jose raul BI w sam HISTORY: Screening TECHNIQUE: Craniocaudal and mediolateral oblique 3-D tomosynthesis images were obtained and synthetic 2-D images were generated. CAD analysis was submitted and interpreted. COMPARISON: 03/26/2023 BREAST PARENCHYMAL COMPOSITION: The breasts are heterogeneously dense, which may obscure small masses. FINDINGS: There is no evidence of suspicious mass, calcification, or architectural distortion to suggest malignancy in either breast. IMPRESSION: 1. No mammographic evidence of malignancy. 2. Recommend routine screening mammography in one year. BI-RADS Category 1: Negative Reviewed, dictated and finalized at location B.
== END 2025-08-19 08:49 | disposition home or self-care (01) ==
LOC: ANHFOHIMG 08:52
PROVIDERS: PCP Nurse Practitioner Family; Visit Provider Obstetrics & Gynecology
DX: Z12.31 Encounter for screening mammogram for malignant neoplasm of breast (principal)
CPT/HCPCS: 77063; 77067